=== PATIENT | male | born 1980 | race Caucasian/White ===

== ENCOUNTER 2025-03-23 18:24 | Emergency (ER) | payer OTHER ==
[~2025-03-23] VITALS: Ht 177.8 cm; Wt 73.0 kg
[2025-03-23 18:26] VITALS: BP 108/62; PULSE 74; RESP 18; TEMP 36.7; O2SAT 99
== END 2025-03-23 18:42 | disposition left against medical advice (07) ==
LOC: ER 18:24
DX: R51.9 Headache, unspecified (principal)
CPT/HCPCS: 99281